=== PATIENT | female | born 1955 | race Two or more races ===

== ENCOUNTER 2017-02-04 17:04 | Emergency (ER) | payer OTHER ==
[~2017-02-04] VITALS: Ht 165.1 cm; Wt 77.5 kg
[~2017-02-04 17:04] MED LIST: ASPI-535
[2017-02-04 17:08] VITALS: Ht 165.1 cm; Wt 77.5 kg
[2017-02-04 19:04] LABS: ADD UMIC YES; UR ASCORBIC ACID NEGATIVE (NEGATIVE); UR BACTERIA FEW /HPF (NONE SEEN); UR BILIRUBIN (Dip) NEGATIVE (NEGATIVE); UR BLOOD (Dip) 2+ mg/dL (NEGATIVE); UR CLARITY SLIGHTLY CLOUDY (CLEAR); UR COLOR YELLOW (YELLOW); UR GLUCOSE (Dip) NEGATIVE (NEGATIVE); UR KETONES (Dip) NEGATIVE (NEGATIVE); UR LEUKOCYTE ESTERASE (Dip) 3+ Leu/ul (NEGATIVE); UR MUCUS MODERATE /HPF (NONE SEEN); UR NITRITE (Dip) NEGATIVE (NEGATIVE); UR RBC 14 /HPF (0-5); UR SPECIFIC GRAVITY (Dip) 1.023 (1.003-1.030); UR SQUAMOUS EPITHELIAL CELL FEW /HPF (FEW); UR TOTAL PROTEIN (Dip) NEGATIVE (NEGATIVE); UR UROBILINOGEN (Dip) NEGATIVE (NEGATIVE)
[2017-02-04] MEDS ORDERED: CEPH-443 PO (19:09)
[2017-02-04] MEDS ORDERED: METR500T PO (19:09)
[2017-02-04 19:26] VITALS: BP 128/68; PULSE 71; RESP 16
--- NOTE | 2017-02-04 23:08 | ERD ---
ER Documentation Chief Complaint Date/Time DATE: 02/04/17 TIME: 23:05 Chief Complaint Pt with Vag discharge and foul ordor X 2 weeks HPI This is a 61-year-old female presenting to the emergency department status post bladder prolapse surgery that it she has had a couple years prior to being seen with chronic vaginal discharge presenting to the emergency department stating that she has a foul odor vaginal discharge with dysuria for the past couple weeks. Patient denies any sexual activity. She denies any pelvic pain, flank pain, fevers. She denies taking any medications for the. Patient states that she has been using douches ROS All systems reviewed and are negative except as per history of present illness. Medications Home Meds Active Scripts Metronidazole* (Flagyl*) 500 Mg Tablet, 500 MG PO TID for 7 Days, TAB Prov:LOULOU HORNER PA-C 02/04/17 Cephalexin* (Keflex*) 500 Mg Capsule, 500 MG PO TID for 7 Days, CAP Prov:LOULOU HORNER PA-C 02/04/17 Reported Medications Aspirin Ec (Aspir 81) 81 Mg Tablet. 01/05/11 Allergies Allergies: Coded Allergies: No Known Drug Allergies (Verified Allergy, Mild, 01/05/11) PMhx/Soc History of Surgery: Yes (BLADDER REPAIR ) Anesthesia Reaction: No Hx Neurological Disorder: No Hx Respiratory Disorders: No Hx Cardiac Disorders: No Hx Psychiatric Problems: No Hx Miscellaneous Medical Probl: No Hx Alcohol Use: No Hx Substance Use: No Hx Tobacco Use: No Smoking Status: Never smoker Physical Exam Vitals Vital Signs Date Time Temp Pulse Resp B/P Pulse Ox O2 Delivery O2 Flow Rate FiO2 02/04/17 19:26 71 16 128/68 98 Room Air 02/04/17 17:08 98.0 64 22 132/66 98 Physical Exam GENERAL: well-developed/well-nourished, in no apparent distress, non-toxic appearing HENT: NC/AT, moist mucous membranes EYES: Conjunctiva normal NECK: Supple, no lymphadenopathy PULM: CTA bilaterally, no rales, rhonchi, or wheezing heard CV: Normal S1S2, RRR, good capillary refill GI: Soft, non-distended, t nontender to palpation Normal bowel sounds, no masses or organomegaly felt on exam No gross peritonitis, no bruits Negative Rovsing, negative Dong, negative McBurney's point, Negative CVAT BACK: No masses EXT: No clubbing, cyanosis, or edema NEURO: Alert and Orientated SKIN: Intact, normal turgor PSYCH: Normal mood and mentation Results 24 hrs Laboratory Tests Test 02/04/17 18:28 Urine Color YELLOW Urine Clarity SLIGHTLY CLOUDY Urine pH 6.0 Urine Specific Baker 1.023 Urine Ketones NEGATIVEmg/dL Urine Nitrite NEGATIVEmg/dL Urine Bilirubin NEGATIVEmg/dL Urine Urobilinogen NEGATIVEmg/dL Urine Leukocyte Esterase 3+[place]/ul Urine Microscopic RBC 14/HPF Urine Microscopic WBC 67/HPF Urine Squamous Epithelial Cells FEW/HPF Urine Bacteria FEW/HPF Urine Mucus MODERATE/HPF Urine Hemoglobin 2+mg/dL Urine Glucose NEGATIVEmg/dL Urine Total Protein NEGATIVEmg/dl Procedures/MDM A 61-year-old female presenting to the emergency department presenting to emergency department complaining of foul vaginal discharge which is likely due to bacterial vaginosis. Patient was also found to have a urinary tract infection from urinalysis. Patient will be treated with Keflex and Flagyl for the next 7 days. Patient is appropriate to be discharged home to get a referral to see an [employer] for further evaluation management. I doubt that patient has any gonorrhea or chlamydia however a urine culture was sent out. Low suspicion for nephrolithiasis or pyelonephritis. Patient stable to be discharged home. Discussed return to the ER for any worsening sinus symptoms patient understands and agrees with this plan Departure Diagnosis: Primary Impression: UTI (urinary tract infection) Additional Impression: Vaginal discharge Condition: Stable Patient Instructions: Understanding Urinary Tract Infections (UTIs), Vaginal Infection: Bacterial Vaginosis Referrals: [employer] [place] [id number] [facility] [address] [place], [place] [phone] OFFICE FAX MELISSA BARON [address] [place], [place] [phone] ESPINOZA P[place]ROSE [address] [place], [place] [phone] [facility] [address] [facility] [address] [place] [id number], [facility] [address] [facility] [place], [place] [phone] [facility] [address] [place] [address] [facility], [facility] [id number] - [place] [address] [place] [address] DR RODRIGUEZ, MAURICE [address] [facility]. [address], [place] [address] [address] GARNER, [facility] [address] [place], [place] [phone] Additional Instructions: FOLLOW UP WITH YOUR PRIMARY CARE PHYSICIAN TOMORROW.Return to this facility if you are not improving as expected. Take all medicines as directed. Return to this facility if you are not improving as expected. LOULOU HORNER PA-C Feb 04, 2017 23:08
== END 2017-02-04 19:28 | disposition home or self-care (01) ==
LOC: FTE 17:04
DX: N89.8 Other specified noninflammatory disorders of vagina (principal); N39.0 Urinary tract infection, site not specified; Z79.82 Long term (current) use of aspirin
CPT/HCPCS: 81001; 87086; 87591; Z7502; 99284